=== PATIENT | male | born 1980 | race Caucasian/White ===

== ENCOUNTER → 2022-10-19 08:32 | Outpatient (BNVA) | payer OTHER, SELFPAY | PROVIDERS: PCP Internal Medicine; Visit Provider Internal Medicine | DX: S39.012D Strain of muscle, fascia and tendon of lower back, subsequent encounter (principal); X50.0XXD Overexertion from strenuous movement or load, subsequent encounter | CPT/HCPCS: 99203 ==

== ENCOUNTER → 2022-10-26 08:48 | Outpatient (BNVA) | payer OTHER, SELFPAY | PROVIDERS: PCP Internal Medicine; Visit Provider Physician Assistant Medical | DX: M54.50 Low back pain, unspecified (principal) | CPT/HCPCS: 99213 ==

== ENCOUNTER → 2022-11-05 14:21 | Outpatient (BNVA) | payer OTHER, SELFPAY | PROVIDERS: PCP Internal Medicine; Visit Provider Internal Medicine | DX: S39.012D Strain of muscle, fascia and tendon of lower back, subsequent encounter (principal); X58.XXXD Exposure to other specified factors, subsequent encounter | CPT/HCPCS: 99213 ==

== ENCOUNTER 2022-11-11 10:00 | Outpatient (RCR) | payer OTHER, SELFPAY ==
--- NOTE | 2022-11-05 14:39 | MHC.PT.EP ---
[facility] [place] Office [place] Office [place] Office [address] [phone] F: [phone] F: [phone] F: [phone] F: [phone] Physical Therapy Plan of Care Date of Evaluation: Date of Surgery: none Diagnosis: Assessment: Patient is a 42 year old R handed male who presents with s/s consistent with Left lumbar strain. 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 Patient past medical history is otherwise unremarkable. Current impairments include pain, posture, ROM, strength, activity tolerance and functional mobility. Functional limitations include decreased ability to lift, bend, squat, transfer, and sleep. Patient is motivated with good rehab potential. Skilled PT will address impairments and functional limitations in order to achieve goals. Frequency and Duration: The patient will be seen 2x/week for 5 weeks Short Term Goals: I with HEP - 2 weeks Centralized s/s - 2 weeks Demo proper body mechanics for transfers, lifts - 3 weeks Custodial Goals: MAx pain with all activities - 07/28 - 5 weeks Safe return to all work activities - 5 weeks OSwestry 4% or less - 5 weeks Treatment Plan: Modalities to reduce pain, spasms and effusion. Manual therapy to restore motion and function. Therapeutic exercise to improve strength and flexibility. Neuromuscular re-education for posture and balance. Therapeutic activities to return to functional activities of daily living. Electronically signed by: Lance Oneill, PT Please sign and return to therapist. Thank you for your referral.
--- NOTE | 2022-12-29 08:21 | MHC.PT.DC ---
[facility] [place] Office [place] Office [place] Office [address] Bertram Acevedo [address] [phone] F: [phone] F: [phone] F: [phone] F: [phone] Physical Therapy Discharge Report Diagnosis: Low back pain Date of Surgery: none Date of Evaluation: 11/05/22 Date of Discharge: 11/29/22 Treatments to Date: 3 Cancellations to Date: No Shows to Date: Discharge Status: Improved Function Independent with HEP Discharge Summary: 11/11/22: pt has been feeling better overall and more aware of posture and positions/body mechanics. he will return to work tomorrow and call back if needed. 11/09/22: s/s reduced. good carryover. added HS stretching to HEP with LTR. Patient is a 42 year old R handed male who presents with s/s consistent with Left lumbar strain. 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 Patient past medical history is otherwise unremarkable. Current impairments include pain, posture, ROM, strength, activity tolerance and functional mobility. Functional limitations include decreased ability to lift, bend, squat, transfer, and sleep. Patient is motivated with good rehab potential. Skilled PT will address impairments and functional limitations in order to achieve goals. Electronically signed by: Lance Oneill, PT Please sign and return to therapist. Thank you for your referral.
== END 2022-12-29 08:22 | disposition home or self-care (01) ==
LOC: HO.PTCHIC 10:00
PROVIDERS: PCP Internal Medicine; Visit Provider Internal Medicine
DX: S39.012D Strain of muscle, fascia and tendon of lower back, subsequent encounter (principal)
CPT/HCPCS: 97110; 97161

== ENCOUNTER → 2022-11-19 11:32 | Outpatient (BNVA) | payer OTHER, SELFPAY | PROVIDERS: PCP Internal Medicine; Visit Provider Internal Medicine | DX: S39.012D Strain of muscle, fascia and tendon of lower back, subsequent encounter (principal); X50.0XXD Overexertion from strenuous movement or load, subsequent encounter | CPT/HCPCS: 99213 ==

== ENCOUNTER 2024-06-05 14:36 | Outpatient (AMB) | payer OTHER, SELFPAY ==
--- NOTE | 2024-06-05 14:53 | MHC.OFFWIV ---
Intake Vital Signs 06/05/24 14:55 Height 6 ft 1 in Weight 160 lb BMI 21.1 BP 140/100 H Blood Pressure Location Lt brachial Position Sitting Pulse 92 Pulse Source Pulse Oximeter Pulse Oximetry (%) 98 Oxygen Delivery Method Room Air Intake Visit Reasons: WELCOME HOSTESS-dumont stiches Intake Note: Patient here for laceration on left dumont, states he was at work and fell and hit himself on the back of the truck he was working on. Patient Tobacco Use Status: Former Tobacco user Allergies No Known Allergies Allergy (Mild, Unverified 06/05/24 14:57) NOT APPLICABLE Do you need a note to return to daycare/school/sports/work: Yes HPI HPI Comments History of Present Illness Details Patient is a 43-year-old male complaining of a cut on his lower left leg. He states that he was at work, outside, when he cut it on the edge of the bumper of a tractor-trailer truck. He does not know when his last Tdap was. He wrapped it with gauze, he states he did not rinse it out. [facility] Social History Patient Tobacco Use Status: Former Tobacco user Review of Systems Const All systems reviewed & are unremarkable except as noted in HPI and below Physical Exam Vital Signs: Last Vital Signs Pulse 92 06/05/24 14:55 BP 140/100 H 06/05/24 14:55 Pulse Ox 98 06/05/24 14:55 Oxygen Delivery Method Room Air 06/05/24 14:55 BMI result Body Mass Index 21.1 Const General: cooperative, healthy appearing, comfortable, no acute distress and well developed Orientation/consciousness: patient oriented x3 Limitations: no limitations HEENT Head: Yes normal to inspection Neck Neck: Yes normal visual inspection and Yes supple Neuro General: patient oriented x3 Extrem Elbow/forearm/wrist images: 1. 1 cm linear laceration, no erythema, scant bleeding, Office Procedures Laceration Repair Procedure Location: left leg anterior dumont, two 4.0 sutures applied EMLA: 2% Lidocaine Text: After discussion of risk and benefits, written informed consent was obtained. The area was cleaned, prepped, and draped using sterile technique. The wound was debrided of any foreign material or devitalized tissue. Wound edges were approximated and closed using two 4.0 monofilament nylon sutures. Standard wound dressing was applied. Wound care instructions were given. The patient tolerated the procedure well. The patient was instructed to return for increased redness or red streaking, pain, swelling, pus, fevers, chills, or any other signs or symptoms of infection or worsening. DAC Patient was instructed to return for suture removal in 8-10 days Assessment & Plan Assessment & Plan (1) Laceration of left leg: Code(s): S81.812A - Laceration without foreign body, left lower leg, initial encounter Qualifiers: Encounter type: initial encounter Qualified Code(s): S81.812A - Laceration without foreign body, left lower leg, initial encounter Plan: Applied 2 sutures, bacitracin ointment and a Band-Aid, recommended he remove it when he gets home from work tonight. Recommended he just keep it clean and dry using soap and water and leave it open to the air. If any signs of infection, he should return to the clinic, otherwise return in 8-10 days for suture removal. Plan See above Orders: Orders TDaP Immunization Today S81.812A - Laceration without foreign body, left lower leg, initial encounter Medications: New Boostrix Tdap (diphth,pertus(acell),tetanus) 0.5 mL IM ONCE 0.5 mL 0RF laceration NS S81.812A - Laceration without foreign body, left lower leg, initial encounter Coding Level of Care Code New Pt Level 4 (58322) Diagnoses Laceration of left lower extremity, initial encounter S81.812A Encounter type: initial encounter
[2024-06-05 14:55] VITALS: BP 140/100; PULSE 92; O2SAT 98; BMI 21.1
== END 2024-06-05 15:44 | disposition home or self-care (01) ==
PROVIDERS: PCP Internal Medicine; Visit Provider Physician Assistant
DX: S81.812A Laceration without foreign body, left lower leg, initial encounter (principal)

== ENCOUNTER → 2024-06-05 14:36 | Outpatient (BNVA) | payer OTHER, SELFPAY | PROVIDERS: PCP Internal Medicine; Visit Provider Physician Assistant | DX: S81.812A Laceration without foreign body, left lower leg, initial encounter (principal); W26.8XXA Contact with other sharp object(s), not elsewhere classified, initial encounter; Y93.9 Activity, unspecified; Y92.9 Unspecified place or not applicable; Y99.0 Civilian activity done for income or pay | CPT/HCPCS: 12001; 99202 ==

== ENCOUNTER 2024-06-14 11:25 | Outpatient (AMB) | payer OTHER, SELFPAY ==
--- NOTE | 2024-06-14 11:29 | MHC.OFFWIV ---
Intake Vital Signs 06/14/24 11:30 Weight 160 lb BP 140/100 H Blood Pressure Location Lt brachial Position Sitting Pulse 82 Pulse Source Pulse Oximeter Pulse Oximetry (%) 98 Oxygen Delivery Method Room Air Intake Visit Reasons: EP stitch removal Intake Note: Patient here for stitches on left leg removed that were placed last wednesday. Patient Tobacco Use Status: Former Tobacco user Allergies No Known Allergies Allergy (Mild, Unverified 06/14/24 11:30) NOT APPLICABLE Do you need a note to return to daycare/school/sports/work: No HPI EP stitch removal HPI Details This note is constructed using voice recognition software. While every effort has been made to ensure accuracy, care management coordinator errors may have been included. The patient is a 43 year old male who presents to the clinic today with suture removal to left leg. The sutures were placed 06/05/24. He has kept the area clean and dry. He denies any pain, warmth, or discharge from the area. [facility] Social History Patient Tobacco Use Status: Former Tobacco user Review of Systems Const All systems reviewed & are unremarkable except as noted in HPI and below Physical Exam Vital Signs: Last Vital Signs Pulse 82 06/14/24 11:30 BP 140/100 H 06/14/24 11:30 Pulse Ox 98 06/14/24 11:30 Oxygen Delivery Method Room Air 06/14/24 11:30 Const General: cooperative, healthy appearing, comfortable, no acute distress and well developed Orientation/consciousness: patient oriented x3 Limitations: no limitations Resp Effort & Inspection: normal respiratory effort and able to speak in complete sentences Skin Other: Left lower extremity anterior aspect with 2 interrupted sutures, removed without complication. There is surrounding ecchymosis to the area, no erythema or warmth or discharge. Neuro General: patient oriented x3 Assessment & Plan Assessment & Plan (1) Laceration of left leg: Code(s): S81.812A - Laceration without foreign body, left lower leg, initial encounter Qualifiers: Encounter type: subsequent encounter Qualified Code(s): S81.812D - Laceration without foreign body, left lower leg, subsequent encounter Plan: Suture removal today. (2) Visit for suture removal: Code(s): Z48.02 - Encounter for removal of sutures Plan: Sutures removed successfully without complication. Patient tolerated procedure well. Advised to keep area clean and dry, did not need to apply any ointments. Plan See above for full details and plan. Coding Level of Care Code Est Pt Level 3 (00930) Diagnoses Laceration of left lower extremity, subsequent encounter S81.812D Encounter type: subsequent encounter Visit for suture removal Z48.02
[2024-06-14 11:30] VITALS: BP 140/100; PULSE 82; O2SAT 98
== END 2024-06-14 12:05 | disposition home or self-care (01) ==
PROVIDERS: PCP Internal Medicine; Visit Provider Registered Nurse
DX: S81.812D Laceration without foreign body, left lower leg, subsequent encounter (principal); Z48.02 Encounter for removal of sutures

== ENCOUNTER → 2024-06-14 11:25 | Outpatient (BNVA) | payer OTHER, SELFPAY | PROVIDERS: PCP Internal Medicine; Visit Provider Registered Nurse | DX: S81.812D Laceration without foreign body, left lower leg, subsequent encounter (principal) | CPT/HCPCS: 99212 ==